=== PATIENT | male | born 1960 | race African-American/Black ===

== ENCOUNTER 2020-06-21 22:10 | Inpatient (IN) | payer OTHER ==
[~2020-06-21] VITALS: Ht 172.7 cm; Wt 59.2 kg
[2020-06-21 22:17] VITALS: BP 178/104
--- NOTE | 2020-06-21 22:25 | Emergency Room Report ---
History of Present Illness General Chief Complaint: Chest Pain Source: Patient Present Illness HPI This is a 60-year-old male with a history of high blood pressure, chronic pain and cocaine abuse. He presents with chief complaint of chest pain. Onset yesterday. Pain to the left side. Pain is sharp radiates to the back. No nausea no vomiting. No fever chills. Pain was 10 out of 10. He called 911. EMS gave him nitroglycerin and aspirin. Pain is now 5 out of 10. He is out of his blood pressure medication, aspirin and pain medication. He has chronic pain to the left chest/abdomen area. Denies exertional component. Denies any diaphoresis or shortness of breath. Allergies: Coded Allergies: RISPERIDONE (Verified Allergy, Unknown, 06/21/20) COVID-19 Screening Contact w/high risk pt: No Experienced COVID-19 symptoms?: No COVID-19 Testing performed COGNOS ANALYST: No Patient History Past Medical History: see triage record, old chart reviewed, HTN Past Surgical History: none Pertinent Family History: none Social History: Reports: smoking, drug use Immunizations: other Reviewed Nursing Documentation: PMH: Agreed; PSxH: Agreed Nursing Documentation-PMH Hx Cardiac Problems: Yes Hx Hypertension: Yes Hx Diabetes: Yes Review of Systems Eye: Denies: eye pain, blurred vision ENT: Denies: ear pain, nose congestion, throat swelling Respiratory: Denies: cough, shortness of breath Cardiovascular: Reports: chest pain; Denies: palpitations Gastrointestinal: Denies: abdominal pain, diarrhea, nausea, vomiting Musculoskeletal: Denies: back pain, joint pain Skin: Denies: rash Neurological: Denies: headache, numbness Endocrine: Denies: increased thirst, increased urine Hematologic/Lymphatic: Denies: easy bruising All Other Systems: negative except mentioned in HPI Physical Exam Vital Signs Date Time Temp Pulse Resp B/P (MAP) Pulse Ox O2 Delivery O2 Flow Rate FiO2 06/21/20 22:07 98.4 86 16 178/104 (128) 98 Room Air Vitals unremarkable except for high blood pressure Sp02 EP Interpretation: reviewed, normal General Appearance: well appearing, no apparent distress, alert Head: normocephalic, atraumatic Eyes: bilateral eye PERRL, bilateral eye EOMI ENT: hearing grossly normal, normal pharynx Neck: full range of motion, supple, no meningismus Respiratory: chest non-tender, lungs clear, normal breath sounds Cardiovascular #1: regular rate, rhythm, no murmur Gastrointestinal: normal bowel sounds, non tender, no mass, no organomegaly, no bruit, non-distended Musculoskeletal: back normal, normal range of motion, gait/station normal Psychiatric: mood/affect normal Medical Decision Making Diagnostic Impression: Primary Impression: Chest pain Qualified Codes: R07.9 - Chest pain, unspecified Additional Impressions: Cocaine abuse Hypertension Qualified Codes: I10 - Essential (primary) hypertension Abnormal liver enzymes ER Course Patient presents with chest pain. He has been noncompliant with his medication. Also cocaine abuse. Troponin intermediate. No STEMI. No evidence of ACS, PE, dissection to name a few. Will admit for further work-up and cardiology consultation. I discussed the case with Dr. Joy who will admit for Dr. Giordano group. EKG Diagnostic Results Rate: tachycardiac Rhythm: NSR ST Segments: other - NSST changes Rhythm Strip Diag. Results EP Interpretation: yes Rate: 100 Rhythm: NSR, no PVC's, no ectopy Chest X-Ray Diagnostic Results Chest X-Ray Diagnostic Results : Chest X-Ray Ordered: Yes # of Views/Limited/Complete: 1 View Indication: Chest Pain EP Interpretation: Yes Interpretation: no consolidation, no effusion, no pneumothorax, other - CM Impression: Other - CM Electronically Signed by: Zheng Cazares MD Last Vital Signs Date Time Temp Pulse Resp B/P (MAP) Pulse Ox O2 Delivery O2 Flow Rate FiO2 06/21/20 22:07 98.4 86 16 178/104 (128) 98 Room Air Status: improved Disposition: ADMITTED INPATIENT Condition: Serious Zheng Cazares MD Jun 21, 2020 22:25
[2020-06-21 22:30] LABS: EOSINOPHILS % (AUTO) 0.9 % (0.0-3.0); HEMATOCRIT 38.1 % (42.0-52.0); HEMOGLOBIN 12.2 G/DL (14.2-18.0); LYMPHOCYTES % (AUTO) 27.5 % (20.0-45.0); MEAN CORPUSCULAR VOLUME 95 FL (80-99); MONOCYTES % (AUTO) 13.3 % (1.0-10.0); NEUTROPHILS % (AUTO) 57.4 % (45.0-75.0); PLATELET COUNT 228 K/UL (150-450); RED BLOOD COUNT 4.03 M/UL (4.70-6.10); RED CELL DISTRIBUTION WIDTH 18.3 % (11.6-14.8); WHITE BLOOD COUNT 9.2 K/UL (4.8-10.8)
[2020-06-21 22:57] LABS: ANION GAP 11 mmol/L (5-15); BLOOD UREA NITROGEN 24 mg/dL (7-18); CALCIUM 9.2 MG/DL (8.5-10.1); CARBON DIOXIDE 24 MMOL/L (21-32); CHLORIDE 104 MMOL/L (98-107); CREATININE 1.1 MG/DL (0.55-1.30); POTASSIUM 4.7 MMOL/L (3.5-5.1); SODIUM 139 MMOL/L (136-145)
--- NOTE | 2020-06-21 23:04 | Diagnostic Imaging Report ---
EXAM: XR Chest, 1 View CLINICAL HISTORY: CP TECHNIQUE: Frontal view of the chest. COMPARISON: No relevant prior studies available. FINDINGS: Lungs: No consolidation or mass. Pleural space: No acute findings Heart: Severe cardiomegaly. Bones/joints: No acute findings. IMPRESSION: Severe cardiomegaly.
[2020-06-21 23:05] LABS: APPEARANCE,URINE CLEAR; BILIRUBIN, URINE 1+ (NEGATIVE); GLUCOSE, URINE (UA) NEGATIVE (NEGATIVE); KETONES,URINE NEGATIVE (NEGATIVE); LEUKOCYTE ESTERASE ,URINE 1+ (NEGATIVE); NITRITE,URINE NEGATIVE (NEGATIVE); PH,URINE 5 (4.5-8.0); PROTEIN,URINE 3+ (NEGATIVE); UROBILINOGEN,URINE 8 MG/DL (0.0-1.0)
[2020-06-21 23:07] LABS: ALANINE AMINOTRANSFERASE 105 U/L (12-78); ALBUMIN 3.2 G/DL (3.4-5.0); ALBUMIN/GLOBULIN RATIO 0.7 (1.0-2.7); ALKALINE PHOSPHATASE 333 U/L (46-116); ASPARTATE AMINO TRANSFERASE 163 U/L (15-37); BILIRUBIN,TOTAL 2.5 MG/DL (0.2-1.0)
[2020-06-21 23:20] LABS: COLOR,URINE YELLOW
[2020-06-21 23:20] LABS: BILIRUBIN,DIRECT 1.7 MG/DL (0.0-0.3)
[2020-06-21] MEDS ORDERED: Enoxaparin 60mg Inj SUBQ ONE (23:30)
[2020-06-21] MEDS ORDERED: Morphine Sulfate 4mg/ml Inj (IV USE ONLY) IVP ONE (23:30)
[2020-06-22] VITALS (7 sets, daily range): BP systolic 130–172; BP diastolic 83–111
[2020-06-22] MEDS ORDERED: LORazepam Inj 2mg/ml 1ml IV PRN (01:00)
[2020-06-22] MEDS ORDERED: Lidocaine 2% Visc 15ml soln ORAL SCH (02:15)
[2020-06-22] MEDS: Omnipaque-300 100ml vial INJ SCH (07:30)
[2020-06-22] MEDS: Nitroglycerin Subl 0.4mg tab SL PRN ×3 (08:06→08:23)
--- NOTE | 2020-06-22 08:11 | Cardiac Electrophysiology PN ---
Subjective Subjective [id number] Objective Last 24 Hour Vital Signs Date Time Temp Pulse Resp B/P (MAP) Pulse Ox O2 Delivery O2 Flow Rate FiO2 06/22/20 08:06 140/80 06/22/20 05:16 164/111 06/22/20 04:00 97.8 107 22 164/111 (128) 100 06/22/20 04:00 109 06/22/20 01:24 Nasal Cannula 2.0 06/22/20 01:05 98.4 111 24 170/100 99 Nasal Cannula 2.0 06/22/20 00:45 172/101 06/22/20 00:42 98.4 110 34 172/101 100 Nasal Cannula 2.0 06/22/20 00:11 98.4 110 22 168/92 100 Nasal Cannula 2.0 06/22/20 00:09 98.4 06/21/20 23:24 190/133 06/21/20 22:48 110 185/114 06/21/20 22:17 98.4 124 22 178/104 100 Nasal Cannula 2.0 06/21/20 22:17 124 16 Room Air 06/21/20 22:07 98.4 86 16 178/104 (128) 98 Room Air Intake and Output 06/21/20 06/22/20 19:00 07:00 Intake Total 1000 ml Balance 1000 ml Intake IV Total 1000 ml # Voids 3 Laboratory Tests Test 06/21/20 22:17 06/21/20 22:50 White Blood Count 9.2 K/UL (4.8-10.8) Red Blood Count 4.03 M/UL (4.70-6.10) L Hemoglobin 12.2 G/DL (14.2-18.0) L Hematocrit 38.1 % (42.0-52.0) L Mean Corpuscular Volume 95 FL (80-99) Mean Corpuscular Hemoglobin 30.1 PG (27.0-31.0) Mean Corpuscular Hemoglobin Concent 31.9 G/DL (32.0-36.0) L Red Cell Distribution Width 18.3 % (11.6-14.8) H Platelet Count 228 K/UL (150-450) Mean Platelet Volume 7.5 FL (6.5-10.1) Neutrophils (%) (Auto) 57.4 % (45.0-75.0) Lymphocytes (%) (Auto) 27.5 % (20.0-45.0) Monocytes (%) (Auto) 13.3 % (1.0-10.0) H Eosinophils (%) (Auto) 0.9 % (0.0-3.0) Basophils (%) (Auto) 1.0 % (0.0-2.0) Sodium Level 139 MMOL/L (136-145) Potassium Level 4.7 MMOL/L (3.5-5.1) Chloride Level 104 MMOL/L (98-107) Carbon Dioxide Level 24 MMOL/L (21-32) Anion Gap 11 mmol/L (5-15) Blood Urea Nitrogen 24 mg/dL (7-18) H Creatinine 1.1 MG/DL (0.55-1.30) Estimat Glomerular Filtration Rate > 60 mL/min (>60) Glucose Level 81 MG/DL (74-106) Calcium Level 9.2 MG/DL (8.5-10.1) Total Bilirubin 2.5 MG/DL (0.2-1.0) H Direct Bilirubin 1.7 MG/DL (0.0-0.3) H Aspartate Amino Transf (AST/SGOT) 163 U/L (15-37) H Alanine Aminotransferase (ALT/SGPT) 105 U/L (12-78) H Alkaline Phosphatase 333 U/L (46-116) H Troponin I 0.346 ng/mL (0.000-0.056) Total Protein 8.1 G/DL (6.4-8.2) Albumin 3.2 G/DL (3.4-5.0) L Globulin 4.9 g/dL Albumin/Globulin Ratio 0.7 (1.0-2.7) L Urine Color Yellow Urine Appearance Clear Urine pH 5 (4.5-8.0) Urine Specific [place] 1.025 (1.005-1.035) Urine Protein 3+ (NEGATIVE) H Urine Glucose (UA) Negative (NEGATIVE) Urine Ketones Negative (NEGATIVE) Urine Blood 4+ (NEGATIVE) H Urine Nitrite Negative (NEGATIVE) Urine Bilirubin 1+ (NEGATIVE) H Urine Ictotest Positive (NEGATIVE) Urine Urobilinogen 8 MG/DL (0.0-1.0) H Urine Leukocyte Esterase 1+ (NEGATIVE) H Urine RBC 15-20 /HPF (0 - 0) H Urine WBC 2-4 /HPF (0 - 0) Urine Squamous Epithelial Cells Occasional /LPF Urine Bacteria Few /HPF (NONE) Urine Opiates Screen Negative (NEGATIVE) Urine Barbiturates Screen Negative (NEGATIVE) Phencyclidine (PCP) Screen Negative (NEGATIVE) Urine Amphetamines Screen Negative (NEGATIVE) Urine Benzodiazepines Screen Negative (NEGATIVE) Urine Cocaine Screen Positive (NEGATIVE) H Urine Marijuana (THC) Screen Negative (NEGATIVE) Sung Russell MD Jun 22, 2020 08:11
[2020-06-22] MEDS: Morphine Sulfate 2mg/ml Inj(IV/IM USE ONLY) IVP PRN ×2 (08:34→19:49)
[2020-06-22] MEDS: Aspirin EC 81mg tab ORAL SCH (08:35)
--- NOTE | 2020-06-22 09:26 | History and Physical ---
History of Present Illness General Date patient seen: Jun 22, 2020 Time patient seen: 09:25 Reason for Hospitalization: Chest Pain, NSTEMI Present Illness HPI This is a 60 year old man with a history of prior left pneumonectomy for severe infection, HTN, glaucoma, cocaine abuse who presents with chest pain. He reports chest pain starting day prior to admission on the left that is sharp and radiating towards back as well as towards abdomen. He otherwise did feel some associated shortness of breath also but no nausea, diaphoresis, palpitations. He called 911 and EMS provided him aspirin load and nitroglycerin which did improve pain. He then presented to ED which showed elevated troponin to 0.[address] depressions. He was started on LMWH and plavix loaded then admitted for further management. This morning he started to describe change in pain pattern, now reporting a more pleuritic pain that worsens with deep breaths. Nitroglycerin x 3 this morning did not improve pain. He also feels abdominal pain although tolerated PO intake without nasuea, vomiting diarrhea. Also has not had fevers, chills, cough, sick contacts. He reports intermittent leg swelling that is now self resolved. He says he was admitted to multiple hospitals in the past few weeks for the same issue but is not able to describe a thorough history. His medical documents do not include any discharge summaries or hospital courses. Allergies: Coded Allergies: RISPERIDONE (Verified Allergy, Unknown, 06/21/20) COVID-19 Screening Contact w/high risk pt: No Recent Travel to affected area: No Experienced COVID-19 symptoms?: No COVID-19 symptoms experienced: Shortness of Breath Medication History Scheduled Albuterol Sulfate* (Albuterol Sulfate Hfa*), 2 PUFF INH Q6H Amlodipine Besylate* (Amlodipine Besylate*), 10 MG ORAL DAILY Aspirin (Aspirin EC), 81 MG ORAL DAILY Clonidine Hcl (Clonidine Hcl), 0.1 MG PO BID Furosemide* (Lasix*), 40 MG ORAL DAILY Lisinopril (Lisinopril*), 5 MG ORAL DAILY Travoprost (Travatan Z), 5 ML OP QHS Scheduled PRN Hydrocodone Bit/Acetaminophen 5-325* ([place] 5-325 Tablet*), 1 TAB ORAL Q6H PRN Medications Narrative Also reports taking Travatan QHS but unknown dose and not in his pharmacy system Patient History History Provided By: Patient Healthcare decision maker Wilfredo Sears [phone] Brother Resuscitation status Advanced Directive on File Past Medical/Surgical History Past Medical/Surgical History: (1) Hypertension (2) Cocaine abuse (3) Chest pain (4) H/O pneumonectomy (5) Normocytic anemia Family History Family History: Patient reports no known family medical history. Social History Social History: (1) Cocaine abuse Review of Systems Constitutional: Denies: chills, sweats, fever Eye: Denies: eye pain, blurred vision, double vision ENT: Denies: ear pain, ear discharge, nose congestion Respiratory: Reports: shortness of breath; Denies: cough, orthopnea Cardiovascular: Reports: chest pain, edema; Denies: palpitations, syncope Gastrointestinal: Reports: abdominal pain; Denies: nausea, vomiting, melena, hematemesis Genitourinary: Denies: discharge, dysuria, frequency Musculoskeletal: Denies: back pain, joint pain Skin: Denies: rash, change in color Psychiatric: Denies: anxiety, depressed feelings Neurological: Denies: headache, numbness Endocrine: Denies: flushing, intolerance to temperature Hematologic/Lymphatic: Denies: blood clots, easy bleeding, easy bruising All Other Systems: negative except mentioned in HPI Physical Exam General Appearance: WD/WN, no apparent distress, alert Lines, tubes and drains: peripheral HEENT: normocephalic, atraumatic, anicteric, mucous membranes moist, PERRL Neck: non-tender, normal alignment, supple, normal inspection Respiratory/Chest: lungs clear, normal breath sounds, no respiratory distress, no accessory muscle use Cardiovascular/Chest: normal peripheral pulses, normal rate, regular rhythm, no JVD Abdomen: normal bowel sounds, non tender, soft, no mass Extremities: normal range of motion, non-tender, no edema Skin Exam: normal pigmentation, warm/dry Neurologic: garnetter II-XII grossly normal, no motor/sensory deficits, alert, oriented x 3, responsive Last 24 Hour Vital Signs Date Time Temp Pulse Resp B/P (MAP) Pulse Ox O2 Delivery O2 Flow Rate FiO2 06/22/20 08:35 109 134/74 06/22/20 08:23 126/69 06/22/20 08:16 140/80 7/27/20 08:06 140/80 06/22/20 08:00 97.9 100 20 148/92 (110) 100 06/22/20 05:16 164/111 06/22/20 04:00 97.8 107 22 164/111 (128) 100 06/22/20 04:00 109 06/22/20 01:24 Nasal Cannula 2.0 06/22/20 01:05 98.4 111 24 170/100 99 Nasal Cannula 2.0 06/22/20 00:45 172/101 06/22/20 00:42 98.4 110 34 172/101 100 Nasal Cannula 2.0 06/22/20 00:11 98.4 110 22 168/92 100 Nasal Cannula 2.0 06/22/20 00:09 98.4 06/21/20 23:24 190/133 06/21/20 22:48 110 185/114 06/21/20 22:17 98.4 124 22 178/104 100 Nasal Cannula 2.0 06/21/20 22:17 124 16 Room Air 06/21/20 22:07 98.4 86 16 178/104 (128) 98 Room Air Intake and Output 06/21/20 06/22/20 19:00 07:00 Intake Total 1000 ml Balance 1000 ml Intake IV Total 1000 ml # Voids 3 Laboratory Tests Test 06/21/20 22:17 06/21/20 22:50 06/22/20 08:30 White Blood Count 9.2 K/UL (4.8-10.8) Red Blood Count 4.03 M/UL (4.70-6.10) L Hemoglobin 12.2 G/DL (14.2-18.0) L Hematocrit 38.1 % (42.0-52.0) L Mean Corpuscular Volume 95 FL (80-99) Mean Corpuscular Hemoglobin 30.1 PG (27.0-31.0) Mean Corpuscular Hemoglobin Concent 31.9 G/DL (32.0-36.0) L Red Cell Distribution Width 18.3 % (11.6-14.8) H Platelet Count 228 K/UL (150-450) Mean Platelet Volume 7.5 FL (6.5-10.1) Neutrophils (%) (Auto) 57.4 % (45.0-75.0) Lymphocytes (%) (Auto) 27.5 % (20.0-45.0) Monocytes (%) (Auto) 13.3 % (1.0-10.0) H Eosinophils (%) (Auto) 0.9 % (0.0-3.0) Basophils (%) (Auto) 1.0 % (0.0-2.0) Sodium Level 139 MMOL/L (136-145) Potassium Level 4.7 MMOL/L (3.5-5.1) Chloride Level 104 MMOL/L (98-107) Carbon Dioxide Level 24 MMOL/L (21-32) Anion Gap 11 mmol/L (5-15) Blood Urea Nitrogen 24 mg/dL (7-18) H Creatinine 1.1 MG/DL (0.55-1.30) Estimat Glomerular Filtration Rate > 60 mL/min (>60) Glucose Level 81 MG/DL (74-106) Calcium Level 9.2 MG/DL (8.5-10.1) Total Bilirubin 2.5 MG/DL (0.2-1.0) H Direct Bilirubin 1.7 MG/DL (0.0-0.3) H Aspartate Amino Transf (AST/SGOT) 163 U/L (15-37) H Alanine Aminotransferase (ALT/SGPT) 105 U/L (12-78) H Alkaline Phosphatase 333 U/L (46-116) H Troponin I 0.346 ng/mL (0.000-0.056) Pending Total Protein 8.1 G/DL (6.4-8.2) Albumin 3.2 G/DL (3.4-5.0) L Globulin 4.9 g/dL Albumin/Globulin Ratio 0.7 (1.0-2.7) L Urine Color Yellow Urine Appearance Clear Urine pH 5 (4.5-8.0) Urine Specific [place] 1.025 (1.005-1.035) Urine Protein 3+ (NEGATIVE) H Urine Glucose (UA) Negative (NEGATIVE) Urine Ketones Negative (NEGATIVE) Urine Blood 4+ (NEGATIVE) H Urine Nitrite Negative (NEGATIVE) Urine Bilirubin 1+ (NEGATIVE) H Urine Ictotest Positive (NEGATIVE) Urine Urobilinogen 8 MG/DL (0.0-1.0) H Urine Leukocyte Esterase 1+ (NEGATIVE) H Urine RBC 15-20 /HPF (0 - 0) H Urine WBC 2-4 /HPF (0 - 0) Urine Squamous Epithelial Cells Occasional /LPF Urine Bacteria Few /HPF (NONE) Urine Opiates Screen Negative (NEGATIVE) Urine Barbiturates Screen Negative (NEGATIVE) Phencyclidine (PCP) Screen Negative (NEGATIVE) Urine Amphetamines Screen Negative (NEGATIVE) Urine Benzodiazepines Screen Negative (NEGATIVE) Urine Cocaine Screen Positive (NEGATIVE) H Urine Marijuana (THC) Screen Negative (NEGATIVE) Height (Feet): 5 Height (Inches): 8.00 Weight (Pounds): 135 Medications Current Medications Medications (Trade) Dose Ordered Sig/Naima Route PRN Reason Start Time Stop Time Status Last Admin Dose Admin Acetaminophen (Tylenol) 650 mg Q6H PRN ORAL For Headache 06/22/20 02:15 07/22/20 02:14 Amlodipine Besylate (Norvasc) 10 mg DAILY ORAL 06/22/20 09:00 07/22/20 08:59 06/22/20 08:35 Aspirin (Ecotrin) 81 mg DAILY ORAL 06/22/20 09:00 08/06/20 08:59 06/22/20 08:35 Clopidogrel Bisulfate (Plavix) 75 mg DAILY ORAL 06/23/20 09:00 07/23/20 08:59 Dextrose (Dextrose 50%) 25 ml Q30M PRN IV Hypoglycemia 06/22/20 00:30 09/20/20 00:29 Dextrose (Dextrose 50%) 50 ml Q30M PRN IV Hypoglycemia 06/22/20 00:30 09/20/20 00:29 Enoxaparin Sodium (Lovenox) 70 mg Q12H SUBQ 06/22/20 11:30 09/20/20 11:29 Hydralazine HCl (Apresoline) 10 mg Q4H PRN IV SBP > 160 06/22/20 01:00 09/20/20 00:59 06/22/20 05:16 Iohexol (OMNIPAQUE-300 100ml) 100 ml ONCE INJ 06/22/20 07:30 06/24/20 07:29 Lorazepam (Ativan 2mg/ml 1ml) 1 mg Q4H PRN IV for SBP > 200 and HR > 120 06/22/20 01:00 06/29/20 00:59 Morphine Sulfate (Morphine Sulfate) 2 mg Q4H PRN IVP For Pain if orals ineffective 06/22/20 02:15 06/29/20 02:14 06/22/20 08:34 Nitroglycerin (Ntg) 0.4 mg Q5M PRN SL Prn Chest Pain 06/22/20 00:45 07/22/20 00:44 06/22/20 08:23 Assessment/Plan Problem List: (1) NSTEMI (non-ST elevated myocardial infarction) ICD Codes: I21.4 - Non-ST elevation (NSTEMI) myocardial infarction SNOMED: 53599609 (2) ACS (acute coronary syndrome) ICD Codes: I24.9 - Acute ischemic heart disease, unspecified SNOMED: 580502757 (3) Chest pain ICD Codes: R07.9 - Chest pain, unspecified SNOMED: 54139139 Qualifiers: Qualified Codes: R07.9 - Chest pain, unspecified (4) Abnormal liver enzymes ICD Codes: R74.8 - Abnormal levels of other serum enzymes SNOMED: 556386876 (5) Cocaine abuse ICD Codes: F14.10 - Cocaine abuse, uncomplicated SNOMED: 86863802 (6) Hypertension ICD Codes: I10 - Essential (primary) hypertension SNOMED: 18958920 Qualifiers: Qualified Codes: I10 - Essential (primary) hypertension (7) Hematuria ICD Codes: R31.9 - Hematuria, unspecified SNOMED: 49420848 (8) Normocytic anemia ICD Codes: D64.9 - Anemia, unspecified SNOMED: 601190015 Status: stable Assessment/Plan: 60 year old man with history of cocaine abuse, HTN, chronic chest pain with multiple admissions for chest pain presenting with recurrent chest pain #NSTEMI #Chest pain #Pleuritic chest pain #history of prior left pneumonectomy for severe infection - elevated troponin and EKG changes concerning for possible ACS especially in light of active cocaine use. Will also consider PE given pleuritic nature - CT PE - trend troponin/EKG - Cardiology Dr. Russell consulted, appreciate recommendations - on therapeutic lovenix, plavix, aspirin 81 daily - resume home crestor - nitro PRN with morphine PRN for severe pain - check A1c, TSh, lipid panel, HIV - perform TTE - hold home lasix as currently euvolemic at this time #HTN - resume home clonidine 0.1 mg BID - resume home amlodipine 10 mg - will consider restarting home lisinopril 5 mg if kidney function stable #Glaucoma - resume home drop #Hematuria #Normocytic Anemia: mild - check iron panel, ferritin, b12, folate - unclear source of hematuria, will likely need outpatient follow up and cystoscopy. degree of hematuria not having significant impact on hemodynamics or hemoglobin level as anemia is only mild #LFT abnormalities: unclear, possibly substance abuse vs infectious vs cardio- hepato syndromes - check hepatitis serologies - trend LFT - check abdominal US #Dispo: This patient is admitted to observation. He needs evaluation of his NSTEMI which may be triggered by cocaine use as well as Cardiology evaluation. If he stays past 2 midnights I will convert this to an inpatient admission. I spent 80 minutes on this case, with >50% [id number] time with patient involving direct counseling and discussion. I coordinated with Graining Machine Operator and RN. I also spent an additional 35 minutes reviewing his records and social work documentation as well as obtaining medications list from pharmacies that he uses. Cesar Joy M.D. Jun 22, 2020 09:26
[2020-06-22] MEDS ORDERED: AMLODIPINE BESY10 MG ORAL (09:32)
[2020-06-22] MEDS ORDERED: CLONIDINE HCL0.1 MG PO (09:32)
[2020-06-22] MEDS ORDERED: FUROSEMIDE40 MG ORAL (09:32)
[2020-06-22] MEDS ORDERED: ALBUTEROL SULF8.5 G1 INH (09:32)
[2020-06-22] MEDS ORDERED: TRAVATAN Z5 ML OP (09:32)
[2020-06-22] MEDS ORDERED: LISINOPRIL5 MG ORAL (09:32)
[2020-06-22] MEDS ORDERED: ASPIRIN-LOW81 MG ORAL (09:32)
[2020-06-22] MEDS ORDERED: NORCO 5-325 TA1 EAC1 ORAL (09:32)
--- NOTE | 2020-06-22 10:00 | Consultation ---
DATE OF CONSULTATION: 06/22/2020 CARDIOLOGY CONSULTATION CONSULTING PHYSICIAN: Sung Russell MD. REFERRING PHYSICIAN: Jose Giordano MD. REASON FOR CONSULTATION: Chest pain. HISTORY OF PRESENT ILLNESS: The patient is a 60-year-old gentleman with history of hypertension and chronic pain, has history of cocaine use, came to the emergency room complaining of chest pain. The pain was left-sided and was sharp and radiating to his back. He did not have nausea, vomiting, or fever or chills. He did call 911 and paramedics gave him nitroglycerin and aspirin. The patient was admitted. His urine toxicology screen was positive for cocaine and troponin was elevated. His blood pressure in the ER was 178/104 with a pulse of 86 and respiration of 16. REVIEW OF SYSTEMS: Review of systems was negative other than what is mentioned in the history of present illness. PAST MEDICAL HISTORY: As mentioned above. FAMILY HISTORY: Noncontributory. SOCIAL HISTORY: He continues to smoke cocaine actively and does not drink alcohol heavily. PHYSICAL EXAMINATION: VITAL SIGNS: Blood pressure of 164/111, pulse is 107, respirations 18, and temperature 97.8. HEAD AND NECK: Shows no JVD. 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 LUNGS: Have coarse rhonchi. CARDIOVASCULAR: Shows regular S1 and S2 with no gallop or murmur. ABDOMEN: Soft. EXTREMITIES: Have no pitting edema. DIAGNOSTIC AND LABORATORY DATA: EKG shows sinus rhythm with right bundle-branch block and LVH and secondary repolarization abnormality. Labs show sodium 139, potassium 4.7, BUN of 24, creatinine 1.1, glucose of 81. Troponin is 0.346. Total bilirubin is 2.5, direct is 1.7 and has elevated AST, ALT and alkaline phosphatase. His white count is 9.2, hematocrit 12.2, hematocrit 38.1, and platelet count 228,000. Urine toxicology is positive for cocaine. ASSESSMENT AND PLAN: 1. Chest pain and elevated troponin with non-ST elevation myocardial infarction. This could be due to the effect of cocaine. Avoid beta-sheyla. We will order aspirin and Plavix and nitroglycerin. We will get an echocardiogram for further evaluation. We will completely rule out SC protocol. Will follow up troponins and EKG and get an echocardiogram as well. 2. Chest pain, likely due to cocaine. However, the patient continues to have sharp chest pain. I will get a D-dimer and get a chest CT angio to rule out pulmonary embolism. 3. Accelerated hypertension. The patient is on amlodipine 10 mg daily. I will add hydralazine 25 mg b.i.d. to his regimen and he is also on p.r.n. IV hydralazine. 4. Polysubstance abuse including cocaine. The patient is also on Lovenox until the troponin level comes down. Thank you very much for allowing me to participate in the care of this patient. Please do not hesitate to contact me for any questions regarding my evaluation. Sung Russell M.D. DR: DEVONTE JOB#: [id number] CC:
--- NOTE | 2020-06-22 10:34 | Diagnostic Imaging Report ---
EXAM: CT CTA Chest w Contrast CLINICAL HISTORY: Chest pain and shortness of breath.. TECHNIQUE: CT angiogram of the pulmonary vasculature performed with IV contrast. 2-D and 3-D reformat images obtained. All CT scans at this facility are performed using dose modulation techniques as appropriate to a performed exam including the following: automated exposure control with adjustment of the mA and/or kV according to patient size. RADIATION DOSE: CTDIvol: 43.2 mGy DLP: 185.4 mGy-cm Dose information generated by the CT scanner is available in PACS. COMPARISON: None FINDINGS: There is adequate opacification of the pulmonary vascularity. There is no central filling defects or thrombus identified. Peripheral subsegmental branches also appear unremarkable. The aorta is normal in caliber and there is no intimal flap or dissection. There is no mediastinal mass or adenopathy. Bilateral paraseptal emphysema noted. There is a small noncalcified subpleural nodule anterior right upper lobe approximately 3 to 4 mm most likely postinflammatory. There are bilateral pleural effusions, small on the left and moderate on the right with some dependent compressive atelectasis. Limited views of the upper abdomen appear unremarkable. There is no acute osseous abnormality noted. IMPRESSION: NO CT EVIDENCE OF PULMONARY EMBOLISM. BILATERAL PARASEPTAL EMPHYSEMA. BILATERAL PLEURAL EFFUSIONS RIGHT GREATER THAN LEFT WITH DEPENDENT COMPRESSIVE ATELECTASIS. SMALL SUBPLEURAL NODULE RIGHT UPPER LOBE IS LIKELY POSTINFLAMMATORY.
[2020-06-22] MEDS ORDERED: Enoxaparin 80mg Inj SUBQ SCH (11:30)
--- NOTE | 2020-06-22 11:43 | General Progress Note ---
Advance Care Planning Advance Care Planning Advance Care Planning [facility] An independent Hospitalist group, where every patient is our [facility] Internal Medicine Hospitalist Advanced Care Planning Note Please contact us at Date of Discussion: A [id number] discussion with the patient regarding the patient's advanced care planning took place during this hospitalization on the above date. The discussion included the explanation and discussion of advance directives and associated forms/documents, as well as the patient's current code status. We also discussed at length the patient's medical conditions (both acute and chronic), general prognosis, treatment options, and goals of care. The following summarizes the discussion: Advance Care Planning/Goals of Care: - Will attempt to fill out an AD and/or POLST with the patient prior to discharge, if not already completed - Continue current evaluation and management of any acute and chronic medical issues - Will continue to support the patient/family - Will continue to discuss both short- and long-term goals of care DPOA-HC/Surrogate Decision Maker: Brother: Wilfredo Sears [phone] Code Status: DNAR DNI. The patient clearly stated that if he were to have cardiac arrest or respiratory failure, then "I would just want to go. Just let me go peacefully." Being intubated and attached to a ventilator is beyond is maximally acceptable outcome and he clearly demonstrated medical decision making capacity. Advanced Care Planning Forms/Documents Completed: Deferred until later encounter/visit: will have social work assist patient in filling out advanced directive to have in his file A total of 32 minutes was spent on this discussion, including counseling, answering questions, and completing, if any, pertinent advanced care planning forms/documents. Time of note may not reflect time of encounter. Cesar Joy M.D. Jun 22, 2020 11:43
[2020-06-22] MEDS: Albuterol 90mcg Inhaler 8gm INH SCH ×2 (13:12→18:08)
[2020-06-22] MEDS: Enoxaparin 60mg Inj SUBQ SCH ×2 (13:14→20:14)
--- NOTE | 2020-06-22 17:08 | Diagnostic Imaging Report ---
Indication: Abdominal pain. Elevated LFTs. Technique: Multiplanar grayscale and proximal Doppler imaging of the abdomen. Comparison: None Findings: Imaged portions of the abdominal aorta are normal in caliber. Imaged portions of the pancreatic head grossly unremarkable. The body and tail are poorly seen. Liver demonstrates normal echogenicity. No focal hepatic mass lesion appreciated sonographically. The imaged hepatic veins are patent. Main portal vein is patent with normal direction of flow. Hepatic contour appears smooth. There is nonspecific thickening of the gallbladder wall which measures up to 8 mm. Some pericholecystic fluid is also noted. Sonographic Casey sign was reported as negative. No discrete gallstones or gallbladder sludge is demonstrated. No biliary ductal dilatation. Common bile duct measures 5 mm. Bilateral pleural effusions incidentally identified. There is a 2.5 cm mildly complex cyst in the upper pole the right kidney. Kidneys demonstrate normal echogenicity. There is no hydronephrosis or sonographically appreciable renal stone. Spleen is normal in size and unremarkable in appearance. IMPRESSION: Nonspecific gallbladder wall thickening. No discrete gallstones or gallbladder sludge is demonstrated. Findings may be secondary to acute hepatic inflammation (for example acute hepatitis). Additional etiologies not excluded. There is some pericholecystic fluid. Acalculus cholecystitis is thought less likely as Sonographic Casey sign was reported as negative. Consider further evaluation with HIDA scan. * No biliary ductal dilatation. * Bilateral pleural effusions incidentally identified. * Mildly complex right renal cyst. Follow-up recommended to ensure stability.
[2020-06-22] MEDS: Latanoprost 0.005% Opth 2.5ml Soln BOTH EYES SCH (20:14)
[2020-06-23] VITALS: BP 146/91
[2020-06-23] MEDS: Morphine Sulfate 2mg/ml Inj(IV/IM USE ONLY) IVP PRN ×2 (03:39→15:11)
[2020-06-23 04:00] VITALS: BP 163/103
[2020-06-23] MEDS: Albuterol 90mcg Inhaler 8gm INH SCH ×4 (06:00→18:10)
[2020-06-23] MEDS: Omnipaque-300 100ml vial INJ SCH (07:30)
[2020-06-23 08:00] VITALS: BP 133/92
[2020-06-23 08:24] LABS: BASOPHILS % (AUTO) 0.7 % (0.0-2.0); EOSINOPHILS % (AUTO) 1.2 % (0.0-3.0); HEMATOCRIT 40.4 % (42.0-52.0); HEMOGLOBIN 13.2 G/DL (14.2-18.0); MEAN CORPUSCULAR VOLUME 91 FL (80-99); MONOCYTES % (AUTO) 12.4 % (1.0-10.0); NEUTROPHILS % (AUTO) 71.7 % (45.0-75.0); PLATELET COUNT 258 K/UL (150-450); RED BLOOD COUNT 4.42 M/UL (4.70-6.10); RED CELL DISTRIBUTION WIDTH 16.5 % (11.6-14.8); WHITE BLOOD COUNT 7.8 K/UL (4.8-10.8)
[2020-06-23 08:49] LABS: ANION GAP 8 mmol/L (5-15); BLOOD UREA NITROGEN 14 mg/dL (7-18); CALCIUM 8.5 MG/DL (8.5-10.1); CARBON DIOXIDE 27 MMOL/L (21-32); CHLORIDE 101 MMOL/L (98-107); CHOLESTEROL 139 MG/DL (< 200); HDL CHOLESTEROL 49 MG/DL (40-60); POTASSIUM 3.4 MMOL/L (3.5-5.1); SODIUM 136 MMOL/L (136-145); TRIGLYCERIDES 38 MG/DL (30-150)
[2020-06-23] MEDS ORDERED: Lisinopril 2.5mg tab ORAL SCH (09:00)
[2020-06-23] MEDS: Aspirin EC 81mg tab ORAL SCH (09:03)
[2020-06-23] MEDS: Enoxaparin 60mg Inj SUBQ SCH ×2 (09:07→20:38)
--- NOTE | 2020-06-23 09:34 | General Progress Note ---
Assessment/Plan Problem List: (1) NSTEMI (non-ST elevated myocardial infarction) ICD Codes: I21.4 - Non-ST elevation (NSTEMI) myocardial infarction SNOMED: 85787663 (2) ACS (acute coronary syndrome) ICD Codes: I24.9 - Acute ischemic heart disease, unspecified SNOMED: 379944945 (3) Chest pain ICD Codes: R07.9 - Chest pain, unspecified SNOMED: 42747817 Qualifiers: Qualified Codes: R07.9 - Chest pain, unspecified (4) Abnormal liver enzymes ICD Codes: R74.8 - Abnormal levels of other serum enzymes SNOMED: 276233573 (5) Cocaine abuse ICD Codes: F14.10 - Cocaine abuse, uncomplicated SNOMED: 97133210 (6) Hypertension ICD Codes: I10 - Essential (primary) hypertension SNOMED: 40917213 Qualifiers: Qualified Codes: I10 - Essential (primary) hypertension (7) Hematuria ICD Codes: R31.9 - Hematuria, unspecified SNOMED: 01572180 (8) Normocytic anemia ICD Codes: D64.9 - Anemia, unspecified SNOMED: 264838739 Status: stable Assessment/Plan: 60 year old man with history of cocaine abuse, HTN, chronic chest pain with multiple admissions for chest pain presenting with recurrent chest pain #NSTEMI #Chest pain #Pleuritic chest pain #history of prior left pneumonectomy for severe infection - elevated troponin and EKG changes concerning for possible ACS especially in light of active cocaine use - CT PE done without evidence of PE - trend troponin/EKG, started down-trending after peaking at roughly 0.45 - Cardiology Dr. Russell consulted, appreciate recommendations - on therapeutic lovenix, plavix, aspirin 81 daily, plavix 75 daily - resume home crestor - nitro PRN with morphine PRN for severe pain - A1c, TSH, lipid panel, HIV unremarkable - TTE done showing mildly reduced EF 40-45% - hold home lasix as currently euvolemic at this time #Chronic systolic heart failure EF 40-45% with moderate MR NOT in exacerbation - no evidence of volume overload at this time - continue holding lasix - Cardiology Dr. Russell following, appreciate recommendations - evaluation of CAD as above #HTN - hold home clonidine 0.1 mg BID given questionable compliance and would want to avoid rebound - resume home amlodipine 10 mg - hydralazine PRN - will consider restarting home lisinopril 5 mg if kidney function stable #NSVT: 20 beats 06/22/20, hemodynamically stable and asymptomatic - avoiding b-blockers currently due to cocaine use - will discuss with Cardiology regarding additional pharmacotherapy #Glaucoma - resume home drops #Hematuria #Normocytic Anemia: mild and improving without specific treatment - unclear source of hematuria, will likely need outpatient follow up and cystoscopy. degree of hematuria not having significant impact on hemodynamics or hemoglobin level as anemia is only mild #LFT abnormalities: unclear, possibly substance abuse vs infectious vs cardio- hepato syndromes. Patient reported Hepatitis history - check hepatitis serologies, will order viral load if positive - trend LFT - check abdominal US for evidence of cirrhosis - may benefit from Hepatology #FEN/GI - on lovenox therapeutic - cardiac diet - peripheral IV - no GI prophylaxis indicated #Dispo: This patient is admitted as observation as he needs evaluation of his NSTEMI as well as newly found reduced ejection fraction which may be triggered by cocaine use as well. He needs further Cardiology evaluation. Pending further workup, anticipate additional 1-2 days. He lives independently in a home I spent 40 minutes on this case, with >50% [id number] time with patient involving direct counseling and discussion. I coordinated with Service Superintendent and RN Subjective Date patient seen: Jun 23, 2020 Time patient seen: 09:28 Constitutional: Denies: chills, diaphoresis, fever HEENT: Denies: blurred vision, double vision Cardiovascular: Denies: chest pain, edema, irregular heart rate Respiratory: Denies: cough, orthopnea, shortness of breath Gastrointestinal/Abdominal: Denies: abdomen distended, abdominal pain, nausea, vomiting Genitourinary: Denies: discharge, frequency Neurologic/Psychiatric: Denies: depressed Endocrine: Denies: excessive sweating, unexplained weight gain, unexplained weight loss Hematologic/Lymphatic: Denies: anemia, easy bleeding, easy bruising Allergies: Coded Allergies: RISPERIDONE (Verified Allergy, Unknown, 06/21/20) All Systems: reviewed and negative except above Subjective patient has resolved chest pain entirely and no shortness of breath. he feels well currently Objective Last 24 Hour Vital Signs Date Time Temp Pulse Resp B/P (MAP) Pulse Ox O2 Delivery O2 Flow Rate FiO2 06/23/20 09:22 Nasal Cannula 1.0 06/23/20 09:03 85 138/92 06/23/20 08:00 98.1 85 20 133/92 (106) 100 06/23/20 08:00 87 06/23/20 04:40 163/103 06/23/20 04:00 96.6 90 23 163/103 (123) 96 06/23/20 04:00 97 06/23/20 00:00 95 06/23/20 00:00 96.1 91 18 146/91 (109) 97 06/22/20 21:00 Nasal Cannula 2.0 06/22/20 20:00 95.9 97 18 130/83 (99) 100 06/22/20 20:00 100 06/22/20 16:00 99 06/22/20 16:00 97.7 107 20 149/92 (111) 100 06/22/20 12:00 97.9 113 20 152/94 (113) 100 Intake and Output 06/22/20 06/23/20 19:00 07:00 Intake Total 800 ml Output Total 500 ml Balance 800 ml -500 ml Intake Oral 800 ml Output Urine Total 500 ml # Voids 3 Laboratory Tests 06/22/20 15:55: D-Dimer 6.02H, Troponin I 0.448H 06/23/20 00:15: Troponin I 0.450H 06/23/20 08:05: Troponin I 0.446H, White Blood Count 7.8, Red Blood Count 4.42L, Hemoglobin 13.2L, Hematocrit 40.4L, Mean Corpuscular Volume 91, Mean Corpuscular Hemoglobin 29.9, Mean Corpuscular Hemoglobin Concent 32.8, Red Cell Distribution Width 16.5H, Platelet Count 258, Mean Platelet Volume 7.6, Neutrophils (%) (Auto) 71.7, Lymphocytes (%) (Auto) 14.0L, Monocytes (%) (Auto) 12.4H, Eosinophils (%) (Auto) 1.2, Basophils (%) (Auto) 0.7, Sodium Level 136, Potassium Level 3.4L, Chloride Level 101, Carbon Dioxide Level 27, Anion Gap 8, Blood Urea Nitrogen 14, Creatinine 1.0, Estimat Glomerular Filtration Rate > 60 , Glucose Level 145H, Hemoglobin A1c 6.2H, Lactic Acid Level 0.90, Calcium Level 8.5, Magnesium Level 1.4L, C-Reactive Protein, Quantitative 4.1H, Pro-B- Type Natriuretic Peptide 3308H, Triglycerides Level 38, Cholesterol Level 139, LDL Cholesterol 81, HDL Cholesterol 49, Cholesterol/HDL Ratio 2.8L, Thyroid Stimulating Hormone (TSH) 3.292, Hepatitis B Surface Antigen [Pending], Hepatitis B Surface Antibody, Quant [Pending], Hepatitis B Core Total Antibody [ Pending], Hepatitis B Core IgM Antibody [Pending], Hepatitis C Antibody [Pending ] Height (Feet): 5 Height (Inches): 8.00 Weight (Pounds): 135 General Appearance: WD/WN, no apparent distress, alert EENT: PERRL/EOMI, normal ENT inspection, pharynx normal Neck: non-tender, normal alignment, supple, normal inspection Cardiovascular: normal peripheral pulses, normal rate, regular rhythm, no JVD Respiratory/Chest: chest wall non-tender, lungs clear, normal breath sounds, no respiratory distress Abdomen: normal bowel sounds, non tender, soft, no mass Pelvis: no active bleeding Extremities: normal range of motion, non-tender, no calf tenderness Edema: no edema noted Arm (L), no edema noted Arm (R), no edema noted Leg (L), no edema noted Leg (R), no edema noted Pedal (L), no edema noted Pedal (R) Neurologic: grade tamper II-XII grossly normal, no motor/sensory deficits, alert, oriented x 3 Skin: normal pigmentation, warm/dry Cesar Joy M.D. Jun 23, 2020 09:34
--- NOTE | 2020-06-23 10:31 | Cardiac Electrophysiology PN ---
Assessment/Plan Assessment/Plan 1. NSTEMI with Chest pain and elevated troponin. Levels are low and flat at 0.4,0.4,0.4 Could be due to the effect of cocaine. Avoid beta-sheyla. Continue aspirin, Plavix and nitroglycerin. Echocardiogram EF 40-45. 2. Long run of 20 beats of VT likely due to cocaine. Chest CT angio ruled out pulmonary embolism. 3. Accelerated hypertension.Change amlodipine to Cardizem CD 300 daily and add lisinopril for EF 45% 4. Cardiomyopathy EF 40-45%. Add Lisinopril 10 mg daily 5. Polysubstance abuse including cocaine. DW RN Subjective Subjective Had 20 beats of VT yesterday. No Cp or SOB Objective Last 24 Hour Vital Signs Date Time Temp Pulse Resp B/P (MAP) Pulse Ox O2 Delivery O2 Flow Rate FiO2 06/23/20 09:22 Nasal Cannula 1.0 06/23/20 09:03 85 138/92 06/23/20 08:00 98.1 85 20 133/92 (106) 100 06/23/20 08:00 87 06/23/20 04:40 163/103 06/23/20 04:00 96.6 90 23 163/103 (123) 96 06/23/20 04:00 97 06/23/20 00:00 95 06/23/20 00:00 96.1 91 18 146/91 (109) 97 06/22/20 21:00 Nasal Cannula 2.0 06/22/20 20:00 95.9 97 18 130/83 (99) 100 06/22/20 20:00 100 06/22/20 16:00 99 06/22/20 16:00 97.7 107 20 149/92 (111) 100 06/22/20 12:00 97.9 113 20 152/94 (113) 100 Intake and Output 06/22/20 06/23/20 19:00 07:00 Intake Total 800 ml Output Total 500 ml Balance 800 ml -500 ml Intake Oral 800 ml Output Urine Total 500 ml # Voids 3 Laboratory Tests Test 06/22/20 15:55 06/23/20 00:15 06/23/20 08:05 D-Dimer 6.02 mg/L FEU (0.00-0.49) H Troponin I 0.448 ng/mL (0.000-0.056) 0.450 ng/mL (0.000-0.056) 0.446 ng/mL (0.000-0.056) White Blood Count 7.8 K/UL (4.8-10.8) Red Blood Count 4.42 M/UL (4.70-6.10) L Hemoglobin 13.2 G/DL (14.2-18.0) L Hematocrit 40.4 % (42.0-52.0) L Mean Corpuscular Volume 91 FL (80-99) Mean Corpuscular Hemoglobin 29.9 PG (27.0-31.0) Mean Corpuscular Hemoglobin Concent 32.8 G/DL (32.0-36.0) Red Cell Distribution Width 16.5 % (11.6-14.8) H Platelet Count 258 K/UL (150-450) Mean Platelet Volume 7.6 FL (6.5-10.1) Neutrophils (%) (Auto) 71.7 % (45.0-75.0) Lymphocytes (%) (Auto) 14.0 % (20.0-45.0) L Monocytes (%) (Auto) 12.4 % (1.0-10.0) H Eosinophils (%) (Auto) 1.2 % (0.0-3.0) Basophils (%) (Auto) 0.7 % (0.0-2.0) Sodium Level 136 MMOL/L (136-145) Potassium Level 3.4 MMOL/L (3.5-5.1) L Chloride Level 101 MMOL/L (98-107) Carbon Dioxide Level 27 MMOL/L (21-32) Anion Gap 8 mmol/L (5-15) Blood Urea Nitrogen 14 mg/dL (7-18) Creatinine 1.0 MG/DL (0.55-1.30) Estimat Glomerular Filtration Rate > 60 mL/min (>60) Glucose Level 145 MG/DL (74-106) H Hemoglobin A1c 6.2 % (4.3-6.0) H Lactic Acid Level 0.90 mmol/L (0.4-2.0) Calcium Level 8.5 MG/DL (8.5-10.1) Magnesium Level 1.4 MG/DL (1.8-2.4) L C-Reactive Protein, Quantitative 4.1 mg/dL (0.00-0.90) H Pro-B-Type Natriuretic Peptide 3308 pg/mL (0-125) H Triglycerides Level 38 MG/DL (30-150) Cholesterol Level 139 MG/DL (< 200) LDL Cholesterol 81 mg/dL (<100) HDL Cholesterol 49 MG/DL (40-60) Cholesterol/HDL Ratio 2.8 (3.3-4.4) L Thyroid Stimulating Hormone (TSH) 3.292 uiU/mL (0.358-3.740) Hepatitis B Surface Antigen Pending Hepatitis B Surface Antibody, Quant Pending Hepatitis B Core Total Antibody Pending Hepatitis B Core IgM Antibody Pending Hepatitis C Antibody Pending Objective HEAD AND NECK: Shows no JVD. 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 LUNGS: Have coarse rhonchi. CARDIOVASCULAR: Shows regular S1 and S2 with no gallop or murmur. ABDOMEN: Soft. EXTREMITIES: Have no pitting edema. Sung Russell MD Jun 23, 2020 10:31
[2020-06-23] MEDS ORDERED: Lexiscan 0.4mg/5ml syringe IV PRN (10:45)
[2020-06-23 12:00] VITALS: BP 149/99
--- NOTE | 2020-06-23 12:02 | Consultation ---
Consult Note Consult Note REASON FOR CONSULTATION: Chest pain and shortness of breath. HISTORY OF PRESENT ILLNESS: The patient is a 60-year-old gentleman with history of hypertension and chronic pain, has history of cocaine use, came to the emergency room complaining of chest pain. The pain was left-sided and was sharp and radiating to his back. He did not have nausea, vomiting, or fever or chills. He did call 911 and paramedics gave him nitroglycerin and aspirin. The patient was admitted. His urine toxicology screen was positive for cocaine and troponin was elevated. His blood pressure in the ER was 178/104 with a pulse of 86 and respiration of 16. REVIEW OF SYSTEMS: Review of systems was negative other than what is mentioned in the history of present illness. PAST MEDICAL HISTORY: As mentioned above. FAMILY HISTORY: Noncontributory. SOCIAL HISTORY: He continues to smoke cocaine actively and does not drink alcohol heavily. PHYSICAL EXAMINATION: VITAL SIGNS: Blood pressure of 164/111, pulse is 107, respirations 18, and temperature 97.8. HEAD AND NECK: Shows no JVD. 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 LUNGS: Have coarse rhonchi. CARDIOVASCULAR: Shows regular S1 and S2 with no gallop or murmur. ABDOMEN: Soft. EXTREMITIES: Have no pitting edema. DIAGNOSTIC AND LABORATORY DATA: EKG shows sinus rhythm with right bundle-branch block and LVH and secondary repolarization abnormality. Labs show sodium 139, potassium 4.7, BUN of 24, creatinine 1.1, glucose of 81. Troponin is 0.346. Total bilirubin is 2.5, direct is 1.7 and has elevated AST, ALT and alkaline phosphatase. His white count is 9.2, hematocrit 12.2, hematocrit 38.1, and platelet count 228,000. Urine toxicology is positive for cocaine. ASSESSMENT AND PLAN: 1. Chest pain and elevated troponin with non-ST elevation myocardial infarction. Will trend troponins and EKG and get an echocardiogram as well. 2. Chest pain, likely due to cocaine. Await D-dimer and get a chest CT angio to rule out pulmonary embolism. 3. Accelerated hypertension. 4. Polysubstance abuse including cocaine. The patient is also on Lovenox until the troponin level comes down. Jazz Mckenzie Omar Syed MD Jun 23, 2020 12:02
[2020-06-23 16:00] VITALS: BP 135/92
[2020-06-23 20:00] VITALS: BP 141/77
[2020-06-23] MEDS: Latanoprost 0.005% Opth 2.5ml Soln BOTH EYES SCH (20:38)
[2020-06-23] MEDS: Lisinopril 10mg tab ORAL SCH (20:38)
[2020-06-24] VITALS: BP 129/75
[2020-06-24 04:00] VITALS: BP 147/92
[2020-06-24] MEDS: Albuterol 90mcg Inhaler 8gm INH SCH ×2 (06:00)
[2020-06-24 08:00] VITALS: BP 142/91
[2020-06-24 08:59] LABS: EOSINOPHILS % (AUTO) 1.8 % (0.0-3.0); LYMPHOCYTES % (AUTO) 16.5 % (20.0-45.0); MEAN CORPUSCULAR VOLUME 94 FL (80-99); MONOCYTES % (AUTO) 14.3 % (1.0-10.0); NEUTROPHILS % (AUTO) 66.5 % (45.0-75.0); PLATELET COUNT 236 K/UL (150-450); RED BLOOD COUNT 4.37 M/UL (4.70-6.10); WHITE BLOOD COUNT 6.4 K/UL (4.8-10.8)
[2020-06-24] MEDS ORDERED: dilTIAZem HCl CD 240mg cap ORAL SCH (09:00)
[2020-06-24] MEDS: Lisinopril 10mg tab ORAL SCH (09:00)
[2020-06-24] MEDS: Aspirin EC 81mg tab ORAL SCH (09:29)
[2020-06-24] MEDS: Enoxaparin 60mg Inj SUBQ SCH (09:31)
[2020-06-24 09:33] LABS: ALANINE AMINOTRANSFERASE 216 U/L (12-78); ALBUMIN 2.5 G/DL (3.4-5.0); ALBUMIN/GLOBULIN RATIO 0.6 (1.0-2.7); ALKALINE PHOSPHATASE 254 U/L (46-116); ANION GAP 8 mmol/L (5-15); ASPARTATE AMINO TRANSFERASE 138 U/L (15-37); BILIRUBIN,TOTAL 1.2 MG/DL (0.2-1.0); BLOOD UREA NITROGEN 13 mg/dL (7-18); CALCIUM 8.4 MG/DL (8.5-10.1); CARBON DIOXIDE 27 MMOL/L (21-32); CHLORIDE 103 MMOL/L (98-107); CREATININE 1.1 MG/DL (0.55-1.30); POTASSIUM 3.7 MMOL/L (3.5-5.1); SODIUM 138 MMOL/L (136-145)
[2020-06-24 09:35] LABS: BILIRUBIN,DIRECT 0.7 MG/DL (0.0-0.3)
[2020-06-24 12:00] VITALS: BP 146/87
--- NOTE | 2020-06-24 12:09 | Pulmonology Progress Note ---
Subjective Interval Events: None new Constitutional: Reports: no symptoms HEENT: Repors: no symptoms Respiratory: Reports: no symptoms Cardiovascular: Reports: no symptoms Gastrointestinal/Abdominal: Reports: no symptoms Allergies: Coded Allergies: RISPERIDONE (Verified Allergy, Unknown, 06/21/20) All Systems: reviewed and negative except above Objective Last 24 Hour Vital Signs Date Time Temp Pulse Resp B/P (MAP) Pulse Ox O2 Delivery O2 Flow Rate FiO2 06/24/20 09:00 Nasal Cannula 1.0 06/24/20 09:00 142/91 06/24/20 09:00 93 142/91 06/24/20 09:00 93 142/91 06/24/20 08:00 97.7 93 18 142/91 (108) 100 06/24/20 07:36 94 06/24/20 04:00 97.5 92 17 147/92 (110) 100 06/24/20 04:00 100 06/24/20 00:00 98.1 96 19 129/75 (93) 98 06/24/20 00:00 91 06/23/20 21:00 Nasal Cannula 1.0 06/23/20 20:38 141/77 06/23/20 20:00 105 06/23/20 20:00 98.1 95 19 141/77 (98) 99 06/23/20 16:00 89 06/23/20 16:00 98.0 90 20 135/92 (106) 100 Intake and Output 06/23/20 06/24/20 19:00 07:00 Intake Total 600 ml 360 ml Balance 600 ml 360 ml Intake Oral 600 ml 360 ml # Voids 6 2 General Appearance: no acute distress HEENT: normocephalic Respiratory: chest wall non-tender, lungs clear Cardiovascular: normal peripheral pulses Abdomen: normal bowel sounds Laboratory Tests 06/23/20 13:50: Troponin I 0.393H 06/24/20 00:16: Troponin I 0.375H 06/24/20 08:30: Troponin I 0.349H, White Blood Count 6.4, Red Blood Count 4.37L, Hemoglobin 13.0L, Hematocrit 41.0L, Mean Corpuscular Volume 94, Mean Corpuscular Hemoglobin 29.8, Mean Corpuscular Hemoglobin Concent 31.8L, Red Cell Distribution Width 17.0H, Platelet Count 236, Mean Platelet Volume 8.0, Neutrophils (%) (Auto) 66.5, Lymphocytes (%) (Auto) 16.5L, Monocytes (%) (Auto) 14.3H, Eosinophils (%) (Auto) 1.8, Basophils (%) (Auto) 1.0, Sodium Level 138, Potassium Level 3.7, Chloride Level 103, Carbon Dioxide Level 27, Anion Gap 8, Blood Urea Nitrogen 13, Creatinine 1.1, Estimat Glomerular Filtration Rate > 60 , Glucose Level 142H, Calcium Level 8.4L, Total Bilirubin 1.2H, Direct Bilirubin 0.7H, Aspartate Amino Transf (AST/SGOT) 138H, Alanine Aminotransferase (ALT/SGPT) 216H, Alkaline Phosphatase 254H, Total Protein 6.6, Albumin 2.5L, Globulin 4.1, Albumin/Globulin Ratio 0.6L Current Medications Medications (Trade) Dose Ordered Sig/Naima Route PRN Reason Start Time Stop Time Status Last Admin Dose Admin Acetaminophen (Tylenol) 650 mg Q6H PRN ORAL For Headache 06/22/20 02:15 07/22/20 02:14 Albuterol Sulfate (Proventil MDI) 2 puff Q6HR INH 06/22/20 13:00 09/20/20 12:59 06/23/20 18:10 Amlodipine Besylate (Norvasc) 10 mg DAILY ORAL 06/22/20 09:00 07/22/20 08:59 06/23/20 09:03 Aspirin (Ecotrin) 81 mg DAILY ORAL 06/22/20 09:00 08/06/20 08:59 06/24/20 09:29 Clopidogrel Bisulfate (Plavix) 75 mg DAILY ORAL 06/23/20 09:00 07/23/20 08:59 06/24/20 09:29 Dextrose (Dextrose 50%) 25 ml Q30M PRN IV Hypoglycemia 06/22/20 00:30 09/20/20 00:29 Dextrose (Dextrose 50%) 50 ml Q30M PRN IV Hypoglycemia 06/22/20 00:30 09/20/20 00:29 Diltiazem HCl (Cardizem CD) 240 mg DAILY ORAL 06/24/20 09:00 07/24/20 08:59 Enoxaparin Sodium (Lovenox) 60 mg Q12HR SUBQ 06/22/20 11:30 09/20/20 11:29 06/24/20 09:31 Hydralazine HCl (Apresoline) 10 mg Q4H PRN IV SBP > 160 06/22/20 01:00 09/20/20 00:59 06/23/20 04:40 Latanoprost (Xalatan) 1 drop BEDTIME BOTH EYES 06/22/20 21:00 07/22/20 20:59 06/23/20 20:38 Lisinopril (ZestriL) 10 mg EVERY 12 HOURS ORAL 06/23/20 21:00 07/23/20 20:59 06/23/20 20:38 Lorazepam (Ativan 2mg/ml 1ml) 1 mg Q4H PRN IV for SBP > 200 and HR > 120 06/22/20 01:00 06/29/20 00:59 Morphine Sulfate (Morphine Sulfate) 2 mg Q4H PRN IVP For Pain if orals ineffective 06/22/20 02:15 06/29/20 02:14 06/23/20 15:11 Nitroglycerin (Ntg) 0.4 mg Q5M PRN SL Prn Chest Pain 06/22/20 00:45 07/22/20 00:44 06/22/20 08:23 Regadenoson (Lexiscan) 0.4 mg ONCE PRN IV STRESS TEST 06/23/20 10:45 06/25/20 10:44 Assessment/Plan Assessment/Plan ASSESSMENT AND PLAN: 1. Chest pain and elevated troponin with non-ST elevation myocardial infarction. 2. Chest pain, likely due to cocaine. Has negative chest CT PA 3. Accelerated hypertension. 4. Polysubstance abuse including cocaine. Jazz Mckenzie Omar Syed MD Jun 24, 2020 12:09
--- NOTE | 2020-06-24 13:42 | Discharge Summary ---
Discharge Summary Hospital Course Date of Admission Jun 21, 2020 at 23:54 Date of Discharge Jun 24, 2020 at 13:07 Admitting Diagnosis NSTEMI, ACS, HTN Reason for Hospitalization: evaluation of NSTEMI CARMELA Sears is a 60 year old male who was admitted on Jun 21, 2020 at 23:54 for Acute Coronary Syndrome, Hypertension This is a 60 year old man with a history of prior left pneumonectomy for severe infection, HTN, glaucoma, cocaine abuse who presented with chest pain. He reported chest pain starting day prior to admission on the left that is sharp and radiating towards back as well as towards abdomen. He otherwise did feel some associated shortness of breath also but no nausea, diaphoresis, palpitations. He called 911 and EMS provided him aspirin load and nitroglycerin which did improve pain. He then presented to ED which showed elevated troponin to 0.[address] depressions. He was started on LMWH and plavix loaded then admitted for further management. The morning of admissionhe started to describe change in pain pattern, now reporting a more pleuritic pain that worsens with deep breaths. Nitroglycerin x 3 that morning did not improve pain. He also felt abdominal pain although tolerated PO intake without nasuea, vomiting diarrhea. Also has not had fevers, chills, cough, sick contacts. He reported intermittent leg swelling that was self resolved. He says he was admitted to multiple hospitals in the past few weeks for the same issue but is not able to describe a thorough history. His medical documents do not include any discharge summaries or hospital courses. Consultations Cardiology - Dr. Russell, Pulmonology - Dr. Luther Procedures N/A Hospital Course 60 year old man with history of cocaine abuse, HTN, chronic chest pain with multiple admissions for chest pain presenting with recurrent chest pain. He was medically managed for NSTEMI on aspirin, plavix, and lovenox. His troponins peaked at 0.45 and down-trended, with no dynamic EKG changes from admission. A CT chest was done which ruled out PE, but did show pleural effusion. Pulmonology Dr. Luther was consulted to evaluate the pleural effusion. The patient's chest pain, by the 2nd day of admission had entirely resolved. There was plan for cardiac stress testing as recommended by Cardiology, but the patient was not accepting of being NPO to wait for test. He then signed out against medical advice without having completed workup of the effusion nor his NSTEMI. He clearly demonstrated medical decision making capacity and understood the risk of recurrent chest pain which could involve acute coronary syndrome and . Other problems addressed during hospitalization: #NSTEMI #Chest pain #Pleuritic chest pain #history of prior left pneumonectomy for severe infection #Pleural effusions - elevated troponin and EKG changes concerning for possible ACS especially in light of active cocaine use - CT PE done without evidence of PE - trend troponin/EKG, started down-trending after peaking at roughly 0.45 - Cardiology Dr. Russell consulted, appreciate recommendations, unable to complete cardiac stress test prior to discharge - on therapeutic lovenix, plavix, aspirin 81 daily, plavix 75 daily - resume home crestor - nitro PRN with morphine PRN for severe pain - A1c, TSH, lipid panel, HIV unremarkable - TTE done showing mildly reduced EF 40-45% - hold home lasix as currently euvolemic at this time - Pulmonology consulted, appreciate recommendations regarding pleural effusions #Chronic systolic heart failure EF 40-45% with moderate MR NOT in exacerbation - no evidence of volume overload at this time - continue holding lasix - Cardiology Dr. Russell following, appreciate recommendations - evaluation of CAD as above #HTN - hold home clonidine 0.1 mg BID given questionable compliance and would want to avoid rebound - resume home amlodipine 10 mg - hydralazine PRN - start lisinopril #NSVT: 20 beats 06/22/20, hemodynamically stable and asymptomatic - avoiding b-blockers currently due to cocaine use - optimization if cardiac processes as above #Glaucoma - resume home drops #Hematuria #Normocytic Anemia: mild and improving without specific treatment - unclear source of hematuria, will likely need outpatient follow up and cystoscopy. degree of hematuria not having significant impact on hemodynamics or hemoglobin level as anemia is only mild #LFT abnormalities: unclear, possibly substance abuse vs infectious vs cardio- hepato syndromes. Patient reported Hepatitis history - check hepatitis serologies, pending by date of leaving against medical advice - trend LFT - abd US with non-specific gallbladder wall thickening and no liver abnormalities. would benefit from outpatient follow up to evaluate for any malignancy and other biliary process No medications were able to be given as patient left against medical advice Discharge Condition Upon Discharge: stable Discharge Vital Signs Last Vital Signs Date Time Temp Pulse Resp B/P (MAP) Pulse Ox O2 Delivery O2 Flow Rate FiO2 06/24/20 12:00 97.9 83 20 146/87 (106) 98 06/24/20 09:00 Nasal Cannula 1.0 Discharge Disposition Patient left against medical advice home Discharge Diagnoses: (1) Thickening of wall of gallbladder (2) Systolic congestive heart failure (3) Pleural effusion (4) ACS (acute coronary syndrome) (5) NSTEMI (non-ST elevated myocardial infarction) (6) Hematuria (7) Normocytic anemia Cesar Joy M.D. Jun 24, 2020 13:42
--- NOTE | 2020-06-24 14:34 | Diagnostic Imaging Report ---
Indication: Chest pain Technique: IV administration 10.8 mCi M technetium Myoview. SPECT images obtained. No stress images obtained, as patient left the hospital before this could be done Comparison: none Findings: No resting perfusion defects are demonstrated. Normal left ventricular chamber size Impression: No evidence of infarct. Unable to assess for ischemia in the absence of post stress images
== END 2020-06-24 13:07 | disposition left against medical advice (07) | DRG 190 ==
LOC: EDBD 22:10 → EMR 22:24 → OBSVTOIN 23:54 → 2E 23:54 → EDBEDREQ 06-22 00:43
DX: I21.4 Non-ST elevation (NSTEMI) myocardial infarction (principal); I10 Essential (primary) hypertension; R31.9 Hematuria, unspecified; H40.9 Unspecified glaucoma; D64.9 Anemia, unspecified; Z88.8 Allergy status to other drugs, medicaments and biological substances; Z79.82 Long term (current) use of aspirin; F14.188 Cocaine abuse with other cocaine-induced disorder; I11.0 Hypertensive heart disease with heart failure; I50.32 Chronic diastolic (congestive) heart failure; I47.2 Ventricular tachycardia; H54.61 Unqualified visual loss, right eye, normal vision left eye; Z66 Do not resuscitate; F19.10 Other psychoactive substance abuse, uncomplicated
CPT/HCPCS: 36415; 71045; 71275; 76700; 78451; 80048; 80053; 80061; 80307; 81003; 82248; 83036; 83605; 83735; 83880; 84443; 84484; 85025; 85379; 86140; 86704; 86705; 86803; 87340; 87517; 93005; 93306; 96361; 96372; 96374; 96375; 96376; 99285; J7030; J8499